=== PATIENT | male | born 1995 | race Caucasian/White ===

== ENCOUNTER 2018-12-05 16:00 | Emergency (ER) | payer BC ==
[~2018-12-05] VITALS: Ht 182.9 cm; Wt 84.1 kg
[2018-12-05 16:03] VITALS: BP 135/63; TEMP 98.3
[2018-12-05] MEDS ORDERED: VIVLODEX10 MG (16:32)
[2018-12-05 17:17] VITALS: PULSE 95
== END 2018-12-05 17:17 | disposition home or self-care (01) ==
LOC: COL.ER 16:00
DX: S61.412A Laceration without foreign body of left hand, initial encounter (principal); Z23 Encounter for immunization; W21.89XA Striking against or struck by other sports equipment, initial encounter; Y93.59 Activity, other involving other sports and athletics played individually